=== PATIENT | male | born 1990 | race African-American/Black ===

== ENCOUNTER 2019-05-17 02:47 | Emergency (ER) | payer SELFPAY ==
[~2019-05-17] VITALS: Ht 190.5 cm; Wt 73.4 kg
[2019-05-17 04:57] LABS: MONOTEST POSITIVE (NEGATIVE)
[2019-05-17] MEDS ORDERED: IBUPROFEN 600MG TABLET PO ONE (05:15)
[2019-05-17 05:18] VITALS: BP 121/79
== END 2019-05-17 05:24 | disposition home or self-care (01) ==
LOC: ER 02:47
DX: B27.90 Infectious mononucleosis, unspecified without complication (principal)
CPT/HCPCS: 71045; 86308; 87070; 87430; 87804; 99284